=== PATIENT | male | born 1985 | race Two or more races ===

== ENCOUNTER 2016-08-02 08:02 | Emergency (ER) | payer SELFPAY ==
[2016-08-02 08:18] VITALS: BP 111/58
[2016-08-02] MEDS ORDERED: CYCLOBENZAPRINE 10 MG TABLET. PO ONE (08:30)
[2016-08-02] MEDS ORDERED: IBUPROFEN 600 MG TABLET. PO ONE (08:30)
--- NOTE | 2016-08-02 08:46 | RAD ---
PA and lateral chest radiographs 08/02/2016. Clinical History: Right upper back pain. PA and lateral digital radiographs of the chest were obtained. No previous studies are available for comparison. The cardiac and mediastinal silhouettes are within normal limits in size and configuration. No pulmonary infiltrate is seen. No pleural effusion or pneumothorax is noted. The osseous structures are grossly intact. Impression: No radiographic evidence of active cardiopulmonary disease.
[2016-08-02] MEDS ORDERED: IBUP-1007 PO (09:02)
[2016-08-02] MEDS ORDERED: CYCL5TAB PO (09:02)
--- NOTE | 2016-08-02 09:02 | PHYS DOC ---
Past Medical History Past Medical History: No Pertinent History Past Surgical History: No Surgical History Alcohol Use: None Drug Use: None Adult General Chief Complaint Chief Complaint: BACK PAIN OR INJURY HPI HPI Patient is a 31 year old male who presents with back pain. The patient has 1 week history of right upper back pain over his scapula. worse with reaching forward. 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 He denies chest pain, shortness of breath, fever, cough, extremity numbness/weakness. Took tylenol at home. Previously healthy. Does not have a PCP. Review of Systems Review of Systems Constitutional: Denies fever or chills HENT: Denies nasal congestion or sore throat Respiratory: Denies cough or shortness of breath Cardiovascular: Denies chest pain GI: Denies abdominal pain, nausea, vomiting : Denies dysuria or hematuria Musculoskeletal: Reports back pain, denies joint pain Integument: Denies rash or skin lesions Neurologic: Denies headache, focal weakness or sensory changes Current Medications Current Medications Current Medications Medications (Trade) Dose Ordered Sig/Faviola Start Time Stop Time Status Last Admin Dose Admin Cyclobenzaprine HCl (Flexeril) 10 mg 1X ONCE 08/02/16 08:30 08/02/16 08:31 DC 08/02/16 08:35 10 MG Ibuprofen (Motrin) 600 mg 1X ONCE 08/02/16 08:30 08/02/16 08:31 DC 08/02/16 08:36 600 MG Allergies Allergies Allergies Coded Allergies Type Severity Reaction Last Updated Verified No Known Drug Allergies 06/23/14 No Physical Exam Physical Exam Constitutional: Well developed, well nourished, no acute distress, non-toxic appearance. HENT: Normocephalic, atraumatic, bilateral external ears normal, oropharynx moist, nose normal. Eyes: conjunctiva normal, no discharge. Neck: supple, no stridor. Cardiovascular: RRR, no murmurs, no edema. Lungs & Thorax: LCTAB, no wheezing, no respiratory distress. Abdomen: soft, nontender, nondistended. Skin: Warm, dry, no erythema, no rash. Back: No spinal tenderness or step offs, no CVA tenderness, right upper back mild tenderness over the scapula. Extremities: no right shoulder pain, swelling, or deformity, normal ROM with scapular pain with forward flexion, radial pulse 2+. Neurologic: Alert and oriented X 3, symmetric strength/sensation to upper extremities. Current Patient Data Vital Signs Vital Signs Date Time Temp Pulse Resp B/P Pulse Ox O2 Delivery O2 Flow Rate FiO2 08/02/16 08:18 98.7 78 16 98 Room Air 98.7 EKG EKG [] Radiology/Procedures Radiology/Procedures PROCEDURE: CHEST PA & LATERAL PA and lateral chest radiographs 08/02/2016. Clinical History: Right upper back pain. PA and lateral digital radiographs of the chest were obtained. No previous studies are available for comparison. The cardiac and mediastinal silhouettes are within normal limits in size and configuration. No pulmonary infiltrate is seen. No pleural effusion or pneumothorax is noted. The osseous structures are grossly intact. Impression: No radiographic evidence of active cardiopulmonary disease. DICTATED and SIGNED BY: DERRICK OCONNELL MD DATE: 08/02/16 0843[] Course & Med Decision Making Course & Med Decision Making Pertinent Labs and Imaging studies reviewed. (See chart for details) Patient presents with back pain. Gave ibuprofen and Flexeril. X-ray shows no acute process. Recommend rest, ice/heat, stretching exercises, prescription given for Flexeril and ibuprofen. Follow up as needed with Dr. Larios in the primary care clinic if not improving in about one week. Return to the emergency department for severe shortness of breath or chest pain, focal neurologic deficit, any otherwise worsening condition. Discharged home in stable condition. [] Dragon Disclaimer Dragon Disclaimer This electronic medical record was generated, in whole or in part, using a voice recognition dictation system. Departure Departure Impression: Primary Impression: Back pain Disposition: 01 HOME, SELF-CARE Condition: STABLE Referrals: LILIBETH LARIOS MD Patient Instructions: Back Pain, Adult, Ople-im-Gmvo Additional Instructions: You were seen in the emergency department today for back pain. The x-ray did not show a serious cause of your pain. This is likely muscle strain/spasm. Please rest, apply ice or heat, take ibuprofen for pain & flexeril for muscle spasm. Follow up as needed with Dr. Larios in the primary care clinic if not improving in about 1 week. Come back for severe chest pain or shortness of breath, numbness or weakness in arms or legs, or otherwise worsening condition. Scripts Ibuprofen 600 Mg [id number] Mg PO PRN Q6HRS PRN INFLAMMATION #20 TAB Prov:LIZANDRO MUNSON MD 08/02/16 Cyclobenzaprine Hcl 5 Mg Tablet1 Tab PO TID PRN MUSCLE SPASMS #10 TAB Prov:LIZANDRO MUNSON MD 08/02/16 LIZANDRO MUNSON MD Aug 02, 2016 09:02
== END 2016-08-02 09:17 | disposition home or self-care (01) ==
LOC: ER 08:02
DX: M54.9 Dorsalgia, unspecified (principal)
CPT/HCPCS: 71020; 99284-25

== ENCOUNTER 2016-10-11 23:14 | Emergency (ER) | payer SELFPAY ==
[~2016-10-11 23:14] MED LIST: CYCL5TAB PO; IBUP-1007 PO
[2016-10-11 23:25] VITALS: BP 147/67
[2016-10-11] MEDS ORDERED: FLUORESCEIN OPHTH TEST STRIP. OD ONE (23:45)
[2016-10-11] MEDS ORDERED: TETRACAINE 0.5% OPHTH SOLUTION 4ML BOTTLE. OD ONE (23:45)
[2016-10-11] MEDS ORDERED: EYE-STREAM OPHTH SOLUTION 120 ML BOTTLE. OD ONE (23:45)
[2016-10-11] MEDS ORDERED: OFLO5DRO OD (23:57)
--- NOTE | 2016-10-11 23:57 | PHYS DOC ---
Past Medical History Past Medical History: No Pertinent History Past Surgical History: No Surgical History Alcohol Use: None Drug Use: None Adult General Chief Complaint Chief Complaint: FOREIGN BODY/EYES [facility] HPI Patient is a 31 year old male presents emergency department stating that he was at work tonight around 5:00 when he felt as though something had splash back up into his eye as he was cleaning out the sink. 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 He states that he is having pain and discomfort. Patient is Maltese-speaking only all information was obtained through significant other at the bedside. Patient is unsure when his last tetanus immunization occurred. He denies any blurred vision or difficulty seeing. Patient does not wear contact lenses or glasses. Review of Systems Review of Systems Constitutional: Denies fever or chills [] Eyes: Denies change in visual acuity, complaint of redness in pain to the right eye. HENT: Denies nasal congestion or sore throat [] Respiratory: Denies cough or shortness of breath [] Cardiovascular: No additional information not addressed in HPI [] GI: Denies abdominal pain, nausea, vomiting, bloody stools or diarrhea [] : Denies dysuria or hematuria [] Musculoskeletal: Denies back pain or joint pain [] Integument: Denies rash or skin lesions [] Neurologic: Denies headache, focal weakness or sensory changes [] Endocrine: Denies polyuria or polydipsia [] Current Medications Current Medications Current Medications Medications (Trade) Dose Ordered Sig/Faviola Start Time Stop Time Status Last Admin Dose Admin Balanced Salt Solution (Eye-Stream) 120 ml 1X ONCE 10/11/16 23:45 10/11/16 23:46 DC 10/11/16 23:43 120 ML Fluorescein Sodium (Ful-Marcella) 1 strip 1X ONCE 10/11/16 23:45 10/11/16 23:46 DC 10/11/16 23:44 1 STRIP Tetracaine HCl (Tetracaine) 1 drop 1X ONCE 10/11/16 23:45 10/11/16 23:46 DC 10/11/16 23:44 1 DROP Allergies Allergies Allergies Coded Allergies Type Severity Reaction Last Updated Verified No Known Drug Allergies 06/23/14 No Physical Exam Physical Exam Constitutional: Well developed, well nourished, no acute distress, non-toxic appearance. [] HENT: Normocephalic, atraumatic, bilateral external ears normal, oropharynx moist, no oral exudates, nose normal. [] Eyes: PERRLA, EOMI, conjunctiva normal, no discharge. No foreign body noted in the lower lid. Upper lid was inverted after providing tetracaine into the eye with no foreign body noted. Neck: Normal range of motion, no tenderness, supple, no stridor. [] Cardiovascular:Heart rate regular rhythm, no murmur [] Lungs & Thorax: Bilateral breath sounds clear to auscultation [] Skin: Warm, dry, no erythema, no rash. [] Back: No tenderness Extremities: No tenderness, no cyanosis, no clubbing, ROM intact, no edema. [] Neurologic: Alert and oriented X 3, normal motor function, normal sensory function, no focal deficits noted. [] Psychologic: Affect normal, judgement normal, mood normal. [] Current Patient Data Vital Signs Vital Signs Date Time Temp Pulse Resp B/P (MAP) Pulse Ox O2 Delivery O2 Flow Rate FiO2 10/11/16 23:25 98.2 75 16 99 Room Air 98.2 EKG EKG [] Radiology/Procedures Radiology/Procedures [] Course & Med Decision Making Course & Med Decision Making Pertinent Labs and Imaging studies reviewed. (See chart for details) Tetracaine was placed into the right eye with fluorescein, no uptake noted. Eye was then irrigated with eye stream. No foreign bodies were noted in the eye no abrasions noted. Patient was encouraged to use Tylenol or ibuprofen for pain and discomfort. He'll be provided with ofloxacin to help with irritation as well as. Patient does have some redness noted at this time in the conjunctivae area. Patient was encouraged to follow-up with an ring sorter in the next 24 hours. Signs and symptoms to return back to emergency department as been provided. Patient agrees with discharge instructions treatment regimens and follow-up recommendations. I'll instructions were provided to family member at the bedside who is interpreting. Patient will be updated with a tetanus immunization here in the emergency department [] Dragon Disclaimer Dragon Disclaimer This electronic medical record was generated, in whole or in part, using a voice recognition dictation system. Departure Departure Impression: Primary Impression: Discomfort of right eye Disposition: HOME, SELF-CARE Condition: STABLE Referrals: NO PCP (PCP) José Luis PUTNAM MD Patient Instructions: Eye Injury-Brief Additional Instructions: You have been provided with an eye exam with no foreign body, no coronary nail abrasions noted. Tylenol or ibuprofen for pain and discomfort. You been provided with a prescription for an eye antibiotic. Please use this as directed. Follow-up with an ring sorter in the next 24 hours. Return back to emergency prior signs and symptoms of become worse. Scripts Ofloxacin (OCUFLOX) 5 Ml Drops 1-2 DROP OD BID, #[address] 1-2 drops into the right eye for the next 7 days. Prov: COLTON NAJERA APRN 10/11/16 COLTON NAJERA APRN Oct 11, 2016 23:57
[2016-10-12] MEDS ORDERED: DIPHTH,PERTUSS(ACELL),TET TOX 0.5 ML DISP.SYRIN. VAX IM ONE
== END 2016-10-12 00:21 | disposition home or self-care (01) ==
LOC: ER 23:14
DX: H57.8 Other specified disorders of eye and adnexa (principal)
CPT/HCPCS: 90471; 90715; 99283-25

== ENCOUNTER 2017-03-11 20:18 | Emergency (ER) | payer SELFPAY ==
[~2017-03-11] VITALS: Ht 170.2 cm; Wt 63.5 kg
[~2017-03-11 20:18] MED LIST changes: +OFLO5DRO OD
[2017-03-11 21:15] VITALS: BP 110/75
[2017-03-11] MEDS ORDERED: IBUPROFEN 800 MG TABLET. PO ONE (21:15)
[2017-03-11] MEDS ORDERED: ONDA4TAB10 SL (21:22)
--- NOTE | 2017-03-11 21:22 | PHYS DOC ---
Past Medical History Past Medical History: No Pertinent History Past Surgical History: No Surgical History Alcohol Use: None Drug Use: None Adult General Chief Complaint Chief Complaint: ABDOMINAL PAIN HPI HPI 32-year-old male with nausea vomiting and diarrhea fever for one day. Family sick contact of child with viral syndrome. No headache or stiff neck Review of Systems Review of Systems Constitutional: Denies fever or chills [] Eyes: Denies change in visual acuity, redness, or eye pain [] HENT: Denies nasal congestion or sore throat [] Respiratory: Denies cough or shortness of breath [] Cardiovascular: No additional information not addressed in HPI [] GI: Denies abdominal pain, nausea, vomiting, bloody stools or diarrhea [] : Denies dysuria or hematuria [] Musculoskeletal: Denies back pain or joint pain [] Integument: Denies rash or skin lesions [] Neurologic: Denies headache, focal weakness or sensory changes [] Endocrine: Denies polyuria or polydipsia [] All other systems were reviewed and found to be within normal limits, except as documented in this note. Current Medications Current Medications Current Medications Medications (Trade) Dose Ordered Sig/Faviola Start Time Stop Time Status Last Admin Dose Admin Ibuprofen (Motrin) 800 mg 1X ONCE 03/11/17 21:15 03/11/17 21:16 DC 03/11/17 21:15 800 MG Allergies Allergies Allergies Coded Allergies Type Severity Reaction Last Updated Verified No Known Drug Allergies 06/23/14 No Physical Exam Physical Exam Well-appearing patient no acute distress supple neck clear lungs regular rate and rhythm benign abdomen normal exam Constitutional: Well developed, well nourished, no acute distress, non-toxic appearance. [] HENT: Normocephalic, atraumatic, bilateral external ears normal, oropharynx moist, no oral exudates, nose normal. [] Eyes: PERRLA, EOMI, conjunctiva normal, no discharge. [] Neck: Normal range of motion, no tenderness, supple, no stridor. [] Cardiovascular:Heart rate regular rhythm, no murmur [] Lungs & Thorax: Bilateral breath sounds clear to auscultation [] Abdomen: Bowel sounds normal, soft, no tenderness, no masses, no pulsatile masses. [] Skin: Warm, dry, no erythema, no rash. [] Back: No tenderness, no CVA tenderness. [] Extremities: No tenderness, no cyanosis, no clubbing, ROM intact, no edema. [] Neurologic: Alert and oriented X 3, normal motor function, normal sensory function, no focal deficits noted. [] Psychologic: Affect normal, judgement normal, mood normal. [] Current Patient Data Vital Signs Vital Signs Date Time Temp Pulse Resp B/P (MAP) Pulse Ox O2 Delivery O2 Flow Rate FiO2 03/11/17 21:15 85 18 110/75 (87) 100 Room Air 03/11/17 20:40 97.9 97.9 EKG EKG [] Radiology/Procedures Radiology/Procedures [] Course & Med Decision Making Course & Med Decision Making Pertinent Labs and Imaging studies reviewed. (See chart for details) Signs and symptoms consistent with viral syndrome. Patient stable and well- appearing alert and vigorous no further workup or treatment indicated patient agrees with outpatient follow-up and strict return precautions given [] Dragon Disclaimer Dragon Disclaimer This electronic medical record was generated, in whole or in part, using a voice recognition dictation system. Departure Departure Impression: Primary Impression: Viral syndrome Additional Impression: Fever Disposition: 01 HOME, SELF-CARE Condition: GOOD Referrals: NO PCP (PCP) Patient Instructions: Fever, Viral Syndrome Additional Instructions: It appears that you have a viral syndrome. This may be influenza, but it may be another virus. Viral syndromes or self limiting and the patient just needs supportive care such as fluids and fever control. Rest and drink plenty of fluids and take ibuprofen 800 mg every 6 hours as needed for pain or fever. Use Tylenol every 4 hours if needed for pain and fever as well. Use Zofran under your tongue every 4 hours as needed for nausea and vomiting .Follow-up with your doctor in 3 days as needed and return immediately for new severe or worsening symptoms or if you feel your becoming dehydrated. Scripts Ondansetron (ZOFRAN ODT) 4 Mg Tab.rapdis 1 TAB SL Q4HRS Y for VOMITING, #15 TAB Prov: MOUSTAPHA MINOR MD 03/11/17 Problem Qualifiers MOUSTAPHA MINOR MD Mar 11, 2017 21:22
== END 2017-03-11 21:56 | disposition home or self-care (01) ==
LOC: ER 20:18
DX: B34.9 Viral infection, unspecified (principal); R50.9 Fever, unspecified
CPT/HCPCS: 99283

== ENCOUNTER 2017-08-02 17:07 | Emergency (ER) | payer SELFPAY | END 2017-08-02 18:07 | disposition home or self-care (01) | LOC: ER 18:07 | DX: L50.9 Urticaria, unspecified (principal) | CPT/HCPCS: 99283 ==

== ENCOUNTER 2018-01-21 21:13 | Emergency (ER) | payer SELFPAY ==
[~2018-01-21] VITALS: Ht 175.3 cm; Wt 63.7 kg
[~2018-01-21 21:13] MED LIST changes: +CIPR250T30 PO; +ONDA4TAB10 SL; +PRED20TA PO
--- NOTE | 2018-01-21 22:08 | PHYS DOC ---
Past Medical History Past Medical History: No Pertinent History Past Surgical History: No Surgical History Alcohol Use: None Drug Use: None Adult General Chief Complaint Chief Complaint: FEVER HPI HPI Patient is a 32 year old M who presents with fever and periumbilical abdominal pain since 01/17/18. Patient denies n/v/d. reports fever max 104.3. reports patient has been having burning abdominal pain after eating spicy foods for a while. Review of Systems Review of Systems Constitutional: Reports fever or chills [] HENT: Denies nasal congestion or sore throat [] Respiratory: Denies cough or shortness of breath [] GI: reports abdominal pain. Denies nausea, vomiting or diarrhea [] : Denies dysuria or hematuria [] Musculoskeletal: Denies back pain or joint pain [] Integument: Denies rash or skin lesions [] Neurologic: Denies headache, focal weakness or sensory changes [] All other systems were reviewed and found to be within normal limits, except as documented in this note. Allergies Allergies Allergies Coded Allergies Type Severity Reaction Last Updated Verified No Known Drug Allergies 06/23/14 No Physical Exam Physical Exam Constitutional: Well developed, well nourished, no acute distress, non-toxic appearance. [] HENT: Normocephalic, atraumatic Eyes: PERRLA, EOMI, conjunctiva normal, no discharge. [] Neck: Normal range of motion, no tenderness, supple, no stridor. [] Cardiovascular:Heart rate regular rhythm, no murmur [] Lungs & Thorax: Bilateral breath sounds clear to auscultation [] Abdomen: Bowel sounds normal, soft, periumbilical tenderness Skin: Warm, dry, no erythema, no rash. [] Extremities: No tenderness, ROM intact, no edema. [] Neurologic: Alert and oriented X 3, normal motor function, normal sensory function, no focal deficits noted. [] Psychologic: Affect normal, judgement normal, mood normal. [] Current Patient Data Vital Signs Vital Signs Date Time Temp Pulse Resp B/P (MAP) Pulse Ox O2 Delivery O2 Flow Rate FiO2 01/21/18 21:30 99.5 77 18 119/67 (84) 98 Room Air 99.5 Lab Values Laboratory Tests Test 01/21/18 22:20 White Blood Count 3.3 x10^3/uL (4.0-11.0) L Red Blood Count 4.80 x10^6/uL (4.30-5.70) Hemoglobin 14.6 g/dL (13.0-17.5) Hematocrit 41.8 % (39.0-53.0) Mean Corpuscular Volume 87 fL (79-100) Mean Corpuscular Hemoglobin 31 pg (25-35) Mean Corpuscular Hemoglobin Concent 35 g/dL (31-37) Red Cell Distribution Width 13.2 % (11.5-14.5) Platelet Count 146 x10^3/uL (140-400) Neutrophils (%) (Auto) 55 % (31-73) Lymphocytes (%) (Auto) 33 % (24-48) Monocytes (%) (Auto) 11 % (0-9) H Eosinophils (%) (Auto) 1 % (0-3) Basophils (%) (Auto) 1 % (0-3) Neutrophils # (Auto) 1.8 x10^3uL (1.8-7.7) Lymphocytes # (Auto) 1.1 x10^3/uL (1.0-4.8) Monocytes # (Auto) 0.4 x10^3/uL (0.0-1.1) Eosinophils # (Auto) 0.0 x10^3/uL (0.0-0.7) Basophils # (Auto) 0.0 x10^3/uL (0.0-0.2) Sodium Level 143 mmol/L (136-145) Potassium Level 3.7 mmol/L (3.5-5.1) Chloride Level 105 mmol/L (98-107) Carbon Dioxide Level 29 mmol/L (21-32) Anion Gap 9 (6-14) Blood Urea Nitrogen 9 mg/dL (8-26) Creatinine 0.8 mg/dL (0.7-1.3) Estimated GFR (Cockcroft-Gault) 112.8 BUN/Creatinine Ratio 11 (6-20) Glucose Level 104 mg/dL (70-99) H Lactic Acid Level 0.8 mmol/L (0.4-2.0) Calcium Level 8.7 mg/dL (8.5-10.1) Total Bilirubin 0.2 mg/dL (0.2-1.0) Aspartate Amino Transferase (AST) 68 U/L (15-37) H Alanine Aminotransferase (ALT) 84 U/L (16-63) H Alkaline Phosphatase 134 U/L (46-116) H C-Reactive Protein, Quantitative 23.6 mg/L (0-3.3) H Total Protein 7.2 g/dL (6.4-8.2) Albumin 3.4 g/dL (3.4-5.0) Albumin/Globulin Ratio 0.9 (1.0-1.7) L Laboratory Tests 01/21/18 22:20 Laboratory Tests 01/21/18 22:20 EKG EKG [] Radiology/Procedures Radiology/Procedures [] Course & Med Decision Making Course & Med Decision Making Pertinent Labs and Imaging studies reviewed. (See chart for details) Patient appears well. He is smiling and swinging his legs during exam. WBC 3.3. Advised patient to continue supportive care and f/u with PCP if symptoms persist. Plan: home to rest, supportive care, f/u with PCP, return precautions reviewed Kim [employer]-Assumed care at 2300,awaiting lab results, CMP with AST of 68 ALT of 84 ALT 134. Abdominal ultrasound was ordered, Preliminary read shows normal exam. Patient was discharged to home. Follow-up with GI and PCP. Tylenol or Motrin for pain or fever. Dragon Disclaimer Dragon Disclaimer This electronic medical record was generated, in whole or in part, using a voice recognition dictation system. Departure Departure Impression: Primary Impression: Fever Additional Impressions: Abdominal pain Transaminitis Disposition: HOME, SELF-CARE Condition: GOOD Referrals: NO PCP (PCP) NIKKI GALLOWAY MD, SCOTT S MD follow up in one week Patient Instructions: Abdominal Pain, Fever, Adult Additional Instructions: If abdominal pain continues, recheck in 12-24 hours. Problem Qualifiers Primary Impression: Fever Fever type: unspecified Qualified Codes: R50.9 - Fever, unspecified Additional Impressions: Abdominal pain Abdominal location: periumbilical Qualified Codes: R10.33 - Periumbilical pain RUDDY HAYS APRN Jan 21, 2018 22:08 KIM HUGHES APRN Jan 22, 2018 00:35
[2018-01-21 22:41] LABS: BASO % 1 % (0-3); EOS % 1 % (0-3); HEMATOCRIT 41.8 % (39.0-53.0); HEMOGLOBIN 14.6 g/dL (13.0-17.5); LYMPH # 1.1 x10^3/uL (1.0-4.8); LYMPH % 33 % (24-48); MEAN CORPUSCULAR HEMOGLOBIN 31 pg (25-35); MEAN CORPUSCULAR HGB CONC 35 g/dL (31-37); MEAN CORPUSCULAR VOLUME 87 fL (79-100); MONO # 0.4 x10^3/uL (0.0-1.1); MONO % 11 % (0-9); NEUT # 1.8 x10^3uL (1.8-7.7); NEUT % 55 % (31-73); PLATELET COUNT 146 x10^3/uL (140-400); RED CELL DISTRIBUTION WIDTH 13.2 % (11.5-14.5); WHITE BLOOD COUNT 3.3 x10^3/uL (4.0-11.0)
[2018-01-21 23:00] LABS: CALCIUM 8.7 mg/dL (8.5-10.1); CREATININE 0.8 mg/dL (0.7-1.3); GFR 112.8; POTASSIUM 3.7 mmol/L (3.5-5.1)
[2018-01-21 23:06] LABS: ALBUMIN 3.4 g/dL (3.4-5.0); ALBUMIN/GLOBULIN RATIO 0.9 (1.0-1.7); C-REACTIVE PROTEIN 23.6 mg/L (0-3.3); TOTAL BILIRUBIN 0.2 mg/dL (0.2-1.0); TOTAL PROTEIN 7.2 g/dL (6.4-8.2)
[2018-01-22 00:38] LABS: INFLUENZA A PATIENT NEGATIVE (NEGATIVE); INFLUENZA B PATIENT NEGATIVE (NEGATIVE)
[2018-01-22 00:58] VITALS: BP 130/84
--- NOTE | 2018-01-22 02:07 | RAD ---
INDICATION : abd pain, fever COMPARISON: None TECHNIQUE: Multiple ultrasound images obtained through the abdomen in grayscale and color. FINDINGS: Liver: Borderline echogenic. Gallbladder: No wall thickening or stones. IVC: Aorta and IVC not well seen secondary to overlying bowel gas Common Bile Duct: Not dilated. Pancreas: Poorly seen. Right Kidney: No hydronephrosis. Left kidney: No hydronephrosis IMPRESSION: 1. No bile duct dilation or hydronephrosis. Liver is borderline echogenic. Nonspecific but can be seen with mild fatty infiltration Electronically signed by: Zoran Larios MD (01/22/2018 2:03 AM) [facility]
== END 2018-01-22 01:00 | disposition home or self-care (01) ==
LOC: ER 21:13
DX: R10.33 Periumbilical pain (principal); R50.9 Fever, unspecified; R74.0 Nonspecific elevation of levels of transaminase and lactic acid dehydrogenase [LDH]
CPT/HCPCS: 36415; 76700; 80053; 83605; 85025; 86140; 87070; 87804; 87880; 99285-25

== ENCOUNTER 2020-09-09 12:27 | Emergency (ER) | payer OTHER ==
[~2020-09-09] VITALS: Ht 157.5 cm; Wt 65.0 kg
--- NOTE | 2020-09-09 14:11 | PHYS DOC ---
Past Medical History Past Medical History: No Pertinent History Past Surgical History: No Surgical History Smoking Status: Never Smoker Alcohol Use: None Drug Use: None General Adult EDM: Chief Complaint: LACERATION/AVULSION HPI: HPI: Patient is a 35 year old male who presents with 1 inch left lateral thumb laceration with edges are approximated and nongaping or open. Patient did this this morning while using a slicer. He does need a tetanus shot. Patient rates his pain a throbbing 5 out of 10. Denies past medical history. Review of Systems: Review of Systems: Constitutional: Denies fever or chills. [] Eyes: Denies change in visual acuity. [] HENT: Denies nasal congestion or sore throat. [] Respiratory: Denies cough or shortness of breath. [] Cardiovascular: Denies chest pain or edema. [] GI: Denies abdominal pain, nausea, vomiting, bloody stools or diarrhea. [] : Denies dysuria. [] Musculoskeletal: Denies back pain or joint pain. + Left thumb pain [] Integument: Denies rash. + Left thumb laceration [] Neurologic: Denies headache, focal weakness or sensory changes. [] Endocrine: Denies polyuria or polydipsia. [] Lymphatic: Denies swollen glands. [] Psychiatric: Denies depression or anxiety. [] Heart Score: C/O Chest Pain: No Risk Factors: Risk Factors: DM, Current or recent (<one month) smoker, HTN, HLP, family history of CAD, obesity. Risk Scores: Score 0 - 3: 2.5% MACE over next 6 weeks - Discharge Home Score 4 - 6: 20.3% MACE over next 6 weeks - Admit for Clinical Observation Score 7 - 10: 72.7% MACE over next 6 weeks - Early Invasive Strategies Allergies: Allergies: Allergies Coded Allergies Type Severity Reaction Last Updated Verified No Known Drug Allergies 06/23/14 No Physical Exam: PE: Constitutional: Well developed, well nourished, no acute distress, non-toxic appearance. [] HENT: Normocephalic, atraumatic, bilateral external ears normal, oropharynx moist, no oral exudates, nose normal. [] Eyes: PERRLA, EOMI, conjunctiva normal, no discharge. [] Neck: Normal range of motion, no tenderness, supple, no stridor. [] Cardiovascular:Heart rate regular rhythm, no murmur [] Lungs & Thorax: Bilateral breath sounds clear to auscultation [] Abdomen: Bowel sounds normal, soft, no tenderness, no masses, no pulsatile masses. [] Skin: Warm, dry, no erythema, no rash. 1 inch left lateral thumb laceration with edges approximated [] Back: No tenderness, no CVA tenderness. [] Extremities: No tenderness, no cyanosis, no clubbing, ROM intact, no edema. [] Neurologic: Alert and oriented X 3, normal motor function, normal sensory function, no focal deficits noted. [] Psychologic: Affect normal, judgement normal, mood normal. [] EKG: EKG: [] Radiology/Procedures: Radiology/Procedures: [] Course & Med Decision Making: Course & Med Decision Making Pertinent Labs and Imaging studies reviewed. (See chart for details) See HPI. Alert and oriented x4. Ambulatory and steady gait. Speaks in full clear sentences. Skin pink warm and dry. Edges are approximated and it is nongaping. He has full range of motion of all joints of the thumb. Did not get the nail bed. Radial pulse strong and present. Skin pink warm and dry. Refill less than 2 seconds. Wound is cleaned up with chlorhexidine and saline. I put some Dermabond over it although it did not need to be glued together. It is wrapped up and dressed with gauze. Patient is given a tetanus shot. [] Dragon Disclaimer: Dragon Disclaimer: This electronic medical record was generated, in whole or in part, using a voice recognition dictation system. Departure Departure Impression: Primary Impression: Laceration Disposition: 01 HOME / SELF CARE / HOMELESS Condition: STABLE Referrals: NO PCP (PCP) Patient Instructions: Fingertip Laceration Additional Instructions: Keep clean and covered. Watch for signs of infection. Do not put any creams over the glue because this will break the glue down. COLTON JOY STAFFING MANAGER September 09, 2020 14:11
[2020-09-09 14:18] VITALS: BP 120/64
[2020-09-09] MEDS ORDERED: DIPH,PERTUSS(ACELL),TET VAC/PF 0.5 ML SYRINGE. VAX IM ONE (14:30)
== END 2020-09-09 14:45 | disposition home or self-care (01) ==
LOC: ER 12:27
DX: S61.012A Laceration without foreign body of left thumb without damage to nail, initial encounter (principal); W27.8XXA Contact with other nonpowered hand tool, initial encounter; Y93.89 Activity, other specified; Y92.89 Other specified places as the place of occurrence of the external cause; Y99.8 Other external cause status
CPT/HCPCS: 12001; 90471; 90715; 99283

== ENCOUNTER 2021-04-14 09:44 | Emergency (ER) | payer SELFPAY ==
[~2021-04-14] VITALS: Ht 157.5 cm; Wt 61.6 kg
[2021-04-14] MEDS ORDERED: IV NORMAL SALINE 1000ML BAG 1,000 ML IV SCH (10:15)
--- NOTE | 2021-04-14 10:19 | PHYS DOC ---
Past Medical History Past Medical History: No Pertinent History Past Surgical History: No Surgical History Smoking Status: Never Smoker Alcohol Use: None Drug Use: None General Adult EDM: Chief Complaint: DIARRHEA HPI: HPI: Patient is a 36-year-old male who presents to the emergency department for generalized abdominal pain and diarrhea that started on Friday. Patient is reporting abdominal pain 3 out of 10 currently but it is intermittent and at its worst is 8 out of 10. He describes it as a pressure pain. No alleviating factors with patient states that when he drinks something cold makes the pain worse. No treatment prior to arrival. Patient denies any nausea, vomiting, urinary symptoms, blood in his stools, cough, fever, sick exposures or recent travel. Review of Systems: Review of Systems: 14 body systems of the review of systems have been reviewed. See HPI for pertinent positive and negative responses, otherwise all other systems are negative, nonpertinent or noncontributory Heart Score: C/O Chest Pain: N/A Risk Factors: Risk Factors: DM, Current or recent (<one month) smoker, HTN, HLP, family history of CAD, obesity. Risk Scores: Score 0 - 3: 2.5% MACE over next 6 weeks - Discharge Home Score 4 - 6: 20.3% MACE over next 6 weeks - Admit for Clinical Observation Score 7 - 10: 72.7% MACE over next 6 weeks - Early Invasive Strategies Allergies: Allergies: Allergies Coded Allergies Type Severity Reaction Last Updated Verified No Known Drug Allergies 04/14/21 No Physical Exam: PE: Constitutional: Well developed, well nourished, no acute distress, non-toxic appearance. [] HENT: Normocephalic, atraumatic, bilateral external ears normal, oropharynx moist, no oral exudates, nose normal. [] Eyes: PERRL, EOMI, conjunctiva normal, no discharge. [] Neck: Normal range of motion, no stridor Cardiovascular:Heart rate regular rhythm, no murmur [] Lungs & Thorax: Bilateral breath sounds clear to auscultation [] Abdomen: Bowel sounds normal, soft, no tenderness, no masses, no guarding, no abdominal rigidity, negative Rodriguez sign, no rebound tenderness, no pulsatile masses. [] Skin: Warm, dry, no erythema, no rash. [] Back: No tenderness, no CVA tenderness. [] Extremities: No tenderness, no cyanosis, no clubbing, ROM intact, no edema. [] Neurologic: Alert and oriented X 3, normal motor function, normal sensory function, no focal deficits noted. [] Psychologic: Affect normal, judgement normal, mood normal. [] Current Patient Data: Vital Signs: Vital Signs Date Time Temp Pulse Resp B/P (MAP) Pulse Ox O2 Delivery O2 Flow Rate FiO2 04/14/21 10:09 98.5 88 14 103/67 (79) 99 Room Air 98.5 EKG: EKG: [] Radiology/Procedures: Radiology/Procedures: [] Course & Med Decision Making: Course & Med Decision Making Pertinent Labs and Imaging studies reviewed. (See chart for details) Patient presents to the emergency department for generalized abdominal pain and diarrhea. Work-up in the ER consisted of blood work, urinalysis and CT imaging of abdomen and pelvis. Patient be treated with IV fluids. Patient's vital signs are stable and he is in no acute distress. Patient's work-up in the ER was unremarkable and his physical exam is reassuring. Patient CT scan of his abdomen and pelvis showed no acute findings. Patient was Covid tested in the emergency department and will be notified of those results when they become available, instructed to self isolate pending results. Patient educated to increase his fluids, take Imodium [id number] for his diarrhea and he was given discharge instructions on a diet to follow. I discussed with patient all findings and diagnostic testing as well as the need to follow-up with PCP for further evaluation and treatment or return to the ER if any new or worsening symptoms. Strict return precautions were also discussed at length. Patient voiced understanding and agreement with the plan. Patient is hemodynamically stable at the time of disposition. Dragon Disclaimer: TalSwyzzle Disclaimer: This electronic medical record was generated, in whole or in part, using a voice recognition dictation system. Departure Departure Impression: Primary Impression: Diarrhea Qualified Codes: R19.7 - Diarrhea, unspecified Additional Impression: Person under investigation for COVID-19 Disposition: HOME / SELF CARE / HOMELESS Condition: GOOD Referrals: NO PCP (PCP) Patient Instructions: Abdominal Pain (Nonspecific), Diet for Diarrhea, Adult Additional Instructions: You were seen in the emergency department today for diarrhea and generalized abdominal pain. Your work-up in the ER was unremarkable. Increase your fluids and rest at home. Please take Imodium [id number] for your diarrhea. We tested you in the emergency department today for COVID-19 and you will be notified of those results when they become available in approximately 2 days. Please self isolate until you receive these results. We recommend a brat diet for diarrhea this includes bananas, rice, applesauce and toast. Please avoid eating any spicy, greasy or fatty foods. Please follow-up with your primary care provider tomorrow regarding your ER visit. Please return to the emergency department if you develop worsening of your abdominal pain, tractable nausea or vomiting, high fevers refractory to treatment or blood in your stools or vomit. RAJ RODRIGUEZ WAX MOLDER Apr 14, 2021 10:19
[2021-04-14 10:35] LABS: BASO % 0 % (0-3); EOS # 0.2 x10^3/uL (0.0-0.7); EOS % 2 % (0-3); HEMATOCRIT 46.3 % (39.0-53.0); HEMOGLOBIN 15.8 g/dL (13.0-17.5); LYMPH # 2.3 x10^3/uL (1.0-4.8); LYMPH % 31 % (24-48); MEAN CORPUSCULAR HEMOGLOBIN 30 pg (25-35); MEAN CORPUSCULAR HGB CONC 34 g/dL (31-37); MEAN CORPUSCULAR VOLUME 89 fL (79-100); MONO # 0.5 x10^3/uL (0.0-1.1); MONO % 7 % (0-9); NEUT # 4.3 x10^3/uL (1.8-7.7); NEUT % 59 % (31-73); PLATELET COUNT 285 x10^3/uL (140-400); RED BLOOD COUNT 5.21 x10^6/uL (4.30-5.70); RED CELL DISTRIBUTION WIDTH 14.1 % (11.5-14.5); WHITE BLOOD COUNT 7.3 x10^3/uL (4.0-11.0)
[2021-04-14 10:39] LABS: BILIRUBIN,URINE NEGATIVE (NEG); CLARITY,URINE CLEAR; COLOR,URINE YELLOW; NITRITE,URINE NEGATIVE (NEG); PH,URINE 5.5 (<5.0-8.0); PROTEIN,URINE NEGATIVE (NEG-TRACE); UROBILINOGEN,URINE 0.2 mg/dL (0.2 mg/dL)
[2021-04-14 10:41] LABS: CALCIUM 8.2 mg/dL (8.5-10.1); CREATININE 0.8 mg/dL (0.7-1.3); POTASSIUM 4.1 mmol/L (3.5-5.1)
[2021-04-14 10:47] LABS: ALBUMIN/GLOBULIN RATIO 0.9 (1.0-1.7); TOTAL BILIRUBIN 0.3 mg/dL (0.2-1.0); TOTAL PROTEIN 8.5 g/dL (6.4-8.2)
[2021-04-14 10:52] LABS: BACTERIA,URINE 0 /HPF (0-FEW); RBC,URINE 0 /HPF (0-2); WBC,URINE OCC /HPF (0-4)
[2021-04-14] MEDS ORDERED: IOHEXOL 300 MG/ML 100ML VIAL. IV ONE (11:00)
[2021-04-14 11:40] VITALS: BP 111/58
--- NOTE | 2021-04-14 11:56 | RAD ---
CT ABDOMEN+PELVIS W dated 04/14/2021 11:00 AM Indication:Reason: generalized abdominal pain, diarrhea / Spl. Instructions: 75ML OMNI 300 / History: Comparison: CT 08/11/2017. Technique: CT images were made through the abdomen and pelvis using an infusion of 75 mL Omnipaque 30 0. One or more of the following individualized dose reduction techniques were utilized for this examinat ion: 1. Automated exposure control 2. Adjustment of the mA and/or kV according to patient size 3. Use of iterative reconstruction technique Findings: The lung bases are clear. The liver and spleen are homogeneous in density and normal in configuration . Both kidneys enhance with contrast. No mass or obstruction is seen. The adrenal glands are not enla rged. The pancreas appears normal. No retroperitoneal or mesenteric adenopathy is seen. There is no a pparent abdominal mass or inflammatory process. Evaluation of the GI tract is slightly limited by lac k of oral contrast. At least a portion of a normal appendix is thought to be seen medial to the cecum . Images through the pelvis show no apparent abnormality of the distal ureters or bladder. No pelvic or inguinal adenopathy is seen. There is no apparent pelvic mass or inflammatory process. IMPRESSION: No apparent acute abnormality. Electronically signed by: Marquez Cote Jr., MD (04/14/2021 11:54 AM) [facility]
--- NOTE | 2021-04-16 11:17 | NUR ---
IP: Informed pt of positive covid test and the need to quarantine for 10 days. Pt verbalized understanding.
== END 2021-04-14 12:31 | disposition home or self-care (01) ==
LOC: ER 09:44
DX: U07.1 COVID-19 (principal); R19.7 Diarrhea, unspecified; R10.84 Generalized abdominal pain
CPT/HCPCS: 36415; 74177; 80053; 81001; 83690; 85025; 96360; 96361; 99285; J7030; Q9967; U0003; U0005